=== PATIENT | male | born 1960 | race Caucasian/White ===

== ENCOUNTER 2018-08-31 16:27 | Emergency (ER) | payer OTHER ==
[~2018-08-31] VITALS: Ht 172.7 cm; Wt 74.1 kg
[2018-08-31] MEDS ORDERED: LISI10TA4 PO (16:36)
[2018-08-31] MEDS ORDERED: ASPI81TA85 PO (16:36)
[2018-08-31] MEDS ORDERED: LIPI10TA PO (16:36)
[2018-08-31] MEDS ORDERED: OXYCODONE/APAP 5MG/325MG(BULK FOR ED) 1 TABLET PO ONE (18:45)
[2018-08-31 19:09] VITALS: BP 142/87
--- NOTE | 2018-09-01 08:29 | REP ---
RIGHT SHOULDER, COMPLETE: 08/31/2018. CLINICAL HISTORY: Trauma, shoulder pain. FINDINGS: No prior study. Hypertrophic spurring superiorly from the clavicle without widening of that AC joint. No elevation of the clavicle in relationship to the acromion on the internal and external rotation views. Minor degenerative changes inferior aspect of the glenohumeral joint and small spurs at the inferior margin of the AC joint compared to the superior spur from the clavicle. No fracture clavicle, ribs, scapula, or humerus. No abnormal soft-tissue calcification, subluxation, or dislocation. IMPRESSION: 1. Some AC joint and glenohumeral joint minor spurring without fracture, subluxation, or dislocation. There is no abnormal soft-tissue calcification. No abnormal widening of that AC joint. Electronically Signed by Don Hardy MD 09/01/2018 08:39 A
== END 2018-08-31 19:23 | disposition home or self-care (01) ==
LOC: M ED 16:27
DX: S49.91XA Unspecified injury of right shoulder and upper arm, initial encounter (principal); W00.9XXA Unspecified fall due to ice and snow, initial encounter; Y92.9 Unspecified place or not applicable; Y93.23 Activity, snow (alpine) (downhill) skiing, snowboarding, sledding, tobogganing and snow tubing; Y99.9 Unspecified external cause status; I10 Essential (primary) hypertension; K21.9 Gastro-esophageal reflux disease without esophagitis; G47.30 Sleep apnea, unspecified; Z79.82 Long term (current) use of aspirin; Z79.899 Other long term (current) drug therapy; Z88.0 Allergy status to penicillin